=== PATIENT | male | born 1990 | race Two or more races ===

== ENCOUNTER 2019-12-19 14:44 | Emergency (ER) | payer OTHER ==
[~2019-12-19] VITALS: Ht 180.3 cm; Wt 70.3 kg
[2019-12-19 14:45] VITALS: BP 137/77
--- NOTE | 2019-12-19 15:27 | NUR ---
covid swab sent to lab.
--- NOTE | 2019-12-19 15:27 | NUR ---
Patient discharged to home in stable condition. Written and verbal after care instructions given. Patient verbalizes understanding of instruction.
== END 2019-12-19 15:27 | disposition home or self-care (01) ==
LOC: ER 14:47
DX: Z03.818 Encounter for observation for suspected exposure to other biological agents ruled out (principal)
CPT/HCPCS: 99283; U0003

== ENCOUNTER 2020-01-30 10:21 | Emergency (ER) | payer OTHER ==
[~2020-01-30] VITALS: Ht 180.3 cm; Wt 71.2 kg
[2020-01-30 10:27] VITALS: BP 126/75
--- NOTE | 2020-01-30 11:16 | NUR ---
Patient discharged to home in stable condition. Written and verbal after care instructions given. Patient verbalizes understanding of instruction.
== END 2020-01-30 11:16 | disposition home or self-care (01) ==
LOC: ER 10:21
DX: Z03.818 Encounter for observation for suspected exposure to other biological agents ruled out (principal)
CPT/HCPCS: 99283; C9803; U0003

== ENCOUNTER 2020-02-11 17:31 | Emergency (ER) | payer OTHER ==
[~2020-02-11] VITALS: Ht 180.3 cm; Wt 70.3 kg
[2020-02-11 17:42] VITALS: BP 128/81
--- NOTE | 2020-02-11 18:39 | NUR ---
Patient discharged to home in stable condition. Written and verbal after care instructions given. Patient verbalizes understanding of instruction.
== END 2020-02-11 18:39 | disposition home or self-care (01) ==
LOC: ER 17:32
DX: Z11.59 Encounter for screening for other viral diseases (principal)
CPT/HCPCS: 99283; C9803; U0003

== ENCOUNTER 2020-03-04 13:37 | Emergency (ER) | payer OTHER ==
[~2020-03-04] VITALS: Ht 180.3 cm; Wt 72.6 kg
[2020-03-04 13:45] VITALS: BP 123/81
--- NOTE | 2020-03-05 18:57 | NUR ---
COVID RESULTS RECEIVED: NEGATIVE
== END 2020-03-04 15:16 | disposition home or self-care (01) ==
LOC: ER 13:39
DX: Z20.828 Contact with and (suspected) exposure to other viral communicable diseases (principal)
CPT/HCPCS: 99283; C9803; U0003

== ENCOUNTER 2020-03-18 09:20 | Emergency (ER) | payer OTHER ==
[~2020-03-18] VITALS: Ht 180.3 cm; Wt 74.8 kg
[2020-03-18 09:25] VITALS: BP 135/81
--- NOTE | 2020-03-18 09:50 | NUR ---
Patient discharged to home in stable condition. Written and verbal after care instructions given. Patient verbalizes understanding of instruction.
== END 2020-03-18 09:49 | disposition home or self-care (01) ==
LOC: ER 09:20
DX: Z20.828 Contact with and (suspected) exposure to other viral communicable diseases (principal)
CPT/HCPCS: 99283; C9803; U0003

== ENCOUNTER 2020-03-28 13:44 | Emergency (ER) | payer OTHER ==
[~2020-03-28] VITALS: Ht 180.3 cm; Wt 72.6 kg
[2020-03-28 13:47] VITALS: BP 130/86
== END 2020-03-28 14:43 | disposition home or self-care (01) ==
LOC: ER 13:45
DX: Z20.828 Contact with and (suspected) exposure to other viral communicable diseases (principal)
CPT/HCPCS: 99283; C9803; U0003

== ENCOUNTER 2020-04-13 03:56 | Emergency (ER) | payer OTHER ==
[~2020-04-13] VITALS: Ht 180.3 cm; Wt 72.6 kg
[2020-04-13 04:00] VITALS: BP 132/62
== END 2020-04-13 04:10 | disposition home or self-care (01) ==
LOC: ER 03:58
DX: Z20.828 Contact with and (suspected) exposure to other viral communicable diseases (principal)
CPT/HCPCS: 99283; C9803; U0003

== ENCOUNTER 2020-04-22 17:34 | Emergency (ER) | payer OTHER ==
[~2020-04-22] VITALS: Ht 180.3 cm; Wt 73.0 kg
[2020-04-22 17:43] VITALS: BP 126/68
--- NOTE | 2020-04-22 18:44 | NUR ---
COVID SWAB SENT. Patient discharged to home in stable condition. Written and verbal after care instructions given. Patient verbalizes understanding of instruction.
== END 2020-04-22 18:45 | disposition home or self-care (01) ==
LOC: ER 17:34
DX: Z20.828 Contact with and (suspected) exposure to other viral communicable diseases (principal)
CPT/HCPCS: 99283; C9803; U0003

== ENCOUNTER 2020-05-05 10:51 | Emergency (ER) | payer OTHER ==
[~2020-05-05] VITALS: Ht 180.3 cm; Wt 72.6 kg
[2020-05-05 10:55] VITALS: BP 135/81
== END 2020-05-05 11:13 | disposition home or self-care (01) ==
LOC: ER 10:56
DX: Z20.828 Contact with and (suspected) exposure to other viral communicable diseases (principal)
CPT/HCPCS: 99283; C9803; U0003

== ENCOUNTER 2020-05-16 10:05 | Emergency (ER) | payer OTHER ==
[~2020-05-16] VITALS: Ht 180.3 cm; Wt 72.6 kg
[2020-05-16 10:10] VITALS: BP 122/78
== END 2020-05-16 10:29 | disposition home or self-care (01) ==
LOC: ER 10:07
DX: Z20.828 Contact with and (suspected) exposure to other viral communicable diseases (principal)
CPT/HCPCS: 99283; C9803; U0003

== ENCOUNTER 2020-05-23 10:24 | Emergency (ER) | payer OTHER ==
[~2020-05-23] VITALS: Ht 170.2 cm; Wt 72.6 kg
[2020-05-23 10:34] VITALS: BP 126/65
== END 2020-05-23 10:49 | disposition home or self-care (01) ==
LOC: ER 10:25
DX: Z20.828 Contact with and (suspected) exposure to other viral communicable diseases (principal)
CPT/HCPCS: 99283; C9803; U0003

== ENCOUNTER 2020-05-26 17:17 | Emergency (ER) | payer OTHER ==
[~2020-05-26] VITALS: Ht 180.3 cm; Wt 72.6 kg
[2020-05-26 17:20] VITALS: BP 132/80
--- NOTE | 2020-05-26 18:01 | NUR ---
Patient discharged to home in stable condition. Written and verbal after care instructions given. Patient verbalizes understanding of instruction.
== END 2020-05-26 18:02 | disposition home or self-care (01) ==
LOC: ER 17:24
DX: Z20.828 Contact with and (suspected) exposure to other viral communicable diseases (principal)
CPT/HCPCS: 99283; C9803; U0003

== ENCOUNTER 2020-06-07 03:43 | Emergency (ER) | payer OTHER ==
[~2020-06-07] VITALS: Ht 180.3 cm; Wt 72.6 kg
[2020-06-07 03:44] VITALS: BP 123/75
== END 2020-06-07 05:04 | disposition home or self-care (01) ==
LOC: ER 03:44
DX: Z20.828 Contact with and (suspected) exposure to other viral communicable diseases (principal)
CPT/HCPCS: 99283; C9803; U0003

== ENCOUNTER 2020-06-13 17:14 | Emergency (ER) | payer OTHER ==
[~2020-06-13] VITALS: Ht 180.3 cm; Wt 72.6 kg
[2020-06-13 17:16] VITALS: BP 121/84
== END 2020-06-13 17:43 | disposition home or self-care (01) ==
LOC: ER 17:15
DX: Z20.828 Contact with and (suspected) exposure to other viral communicable diseases (principal)
CPT/HCPCS: 99283; C9803; U0003

== ENCOUNTER 2020-06-26 17:41 | Emergency (ER) | payer OTHER ==
[~2020-06-26] VITALS: Ht 180.3 cm; Wt 72.6 kg
[2020-06-26 18:00] VITALS: BP 125/80
--- NOTE | 2020-06-26 18:11 | NUR ---
Patient discharged to home in stable condition. Written and verbal after care instructions given. Patient verbalizes understanding of instruction. Pt ambulatory with a steady gait
--- NOTE | 2020-06-26 18:11 | NUR ---
Patient discharged to home in stable condition. Written and verbal after care instructions given. Patient verbalizes understanding of instruction.IV removed. Catheter intact and site benign. Pressure and 4x4 applied to site. No bleeding noted. Pt ambulatory with a steady gait
--- NOTE | 2020-06-26 18:11 | NUR ---
COVID SWAB DONE AND SENT TO LAB
--- NOTE | 2020-06-28 02:32 | NUR ---
called pt for covid results. no one answered. vm left.
== END 2020-06-26 18:15 | disposition home or self-care (01) ==
LOC: ER 17:41
DX: Z20.828 Contact with and (suspected) exposure to other viral communicable diseases (principal)
CPT/HCPCS: 99283; C9803; U0003

== ENCOUNTER 2020-07-06 10:13 | Emergency (ER) | payer OTHER ==
[~2020-07-06] VITALS: Ht 180.3 cm; Wt 72.6 kg
--- NOTE | 2020-07-06 10:22 | NUR ---
COVID SWAB TEST COLLECTED AND SENT TO THE LAB.
[2020-07-06 10:30] VITALS: BP 116/81
--- NOTE | 2020-07-06 10:30 | NUR ---
Patient discharged to home in stable condition. Written and verbal after care instructions given. Patient verbalizes understanding of instruction.
== END 2020-07-06 11:07 | disposition home or self-care (01) ==
LOC: ER 10:14
DX: Z20.828 Contact with and (suspected) exposure to other viral communicable diseases (principal)
CPT/HCPCS: 99283; C9803; U0003

== ENCOUNTER 2020-07-17 11:15 | Emergency (ER) | payer OTHER ==
[~2020-07-17] VITALS: Ht 180.3 cm; Wt 72.6 kg
[2020-07-17 11:38] VITALS: BP 129/81
== END 2020-07-17 12:15 | disposition home or self-care (01) ==
LOC: ER 11:17
DX: Z20.828 Contact with and (suspected) exposure to other viral communicable diseases (principal)
CPT/HCPCS: 99283; C9803; U0003

== ENCOUNTER 2020-07-20 22:13 | Emergency (ER) | payer OTHER ==
[~2020-07-20] VITALS: Ht 180.3 cm; Wt 72.6 kg
[2020-07-20 22:15] VITALS: BP 132/64
[2020-07-24] MEDS ORDERED: NOREPINEPHRINE 4 MG/4 ML AMPUL IV ONE (03:29)
== END 2020-07-20 23:16 | disposition home or self-care (01) ==
LOC: ER 22:19
DX: Z20.828 Contact with and (suspected) exposure to other viral communicable diseases (principal)
CPT/HCPCS: 99283; C9803; U0003

== ENCOUNTER 2020-07-31 16:35 | Emergency (ER) | payer OTHER ==
[~2020-07-31] VITALS: Ht 180.3 cm; Wt 72.6 kg
[2020-07-31 16:42] VITALS: BP 125/68
== END 2020-07-31 17:06 | disposition home or self-care (01) ==
LOC: ER 16:36
DX: Z20.822 Contact with and (suspected) exposure to COVID-19 (principal)
CPT/HCPCS: 99283; C9803; U0003

== ENCOUNTER 2020-08-01 17:50 | Emergency (ER) | payer OTHER ==
[~2020-08-01] VITALS: Ht 180.3 cm; Wt 72.6 kg
[2020-08-01 17:50] VITALS: BP 126/84
== END 2020-08-01 18:09 | disposition home or self-care (01) ==
LOC: ER 17:51
DX: Z20.822 Contact with and (suspected) exposure to COVID-19 (principal)
CPT/HCPCS: 99283; C9803; U0003

== ENCOUNTER 2020-08-07 17:14 | Emergency (ER) | payer OTHER ==
[~2020-08-07] VITALS: Ht 180.3 cm; Wt 44.5 kg
[2020-08-07 17:14] VITALS: BP 119/77
== END 2020-08-07 18:10 | disposition home or self-care (01) ==
LOC: ER 17:15
DX: Z20.822 Contact with and (suspected) exposure to COVID-19 (principal)
CPT/HCPCS: 99283; C9803; U0003

== ENCOUNTER 2020-08-12 01:00 | Emergency (ER) | payer OTHER ==
[~2020-08-12] VITALS: Ht 170.2 cm; Wt 78.0 kg
[2020-08-12 01:01] VITALS: BP 127/73
== END 2020-08-12 01:26 | disposition home or self-care (01) ==
LOC: ER 01:04
DX: Z20.822 Contact with and (suspected) exposure to COVID-19 (principal)
CPT/HCPCS: 99283; C9803; U0003

== ENCOUNTER 2020-08-21 17:27 | Emergency (ER) | payer OTHER ==
[~2020-08-21] VITALS: Ht 170.2 cm; Wt 78.0 kg
[2020-08-21 18:16] VITALS: BP 143/83
--- NOTE | 2020-08-21 18:21 | NUR ---
COVID TEST DONE & SENT TO LAB
== END 2020-08-21 18:22 | disposition home or self-care (01) ==
LOC: ER 17:30
DX: Z20.822 Contact with and (suspected) exposure to COVID-19 (principal)
CPT/HCPCS: 99283; C9803; U0003

== ENCOUNTER 2020-08-29 16:01 | Emergency (ER) | payer OTHER ==
[~2020-08-29] VITALS: Ht 180.3 cm; Wt 72.6 kg
[2020-08-29 16:09] VITALS: BP 121/77
--- NOTE | 2020-08-29 16:33 | NUR ---
COVID SPECIMEN OBTAINED AND SENT TO LAB.
--- NOTE | 2020-08-29 16:33 | NUR ---
Patient discharged to home in stable condition. Written and verbal after care instructions given. Patient verbalizes understanding of instruction.
== END 2020-08-29 16:34 | disposition home or self-care (01) ==
LOC: ER 16:03
DX: Z20.822 Contact with and (suspected) exposure to COVID-19 (principal)
CPT/HCPCS: 99283; C9803; U0003

== ENCOUNTER 2020-08-30 16:18 | Emergency (ER) | payer OTHER ==
[~2020-08-30] VITALS: Ht 180.3 cm; Wt 72.6 kg
[2020-08-30 16:20] VITALS: BP 119/62
--- NOTE | 2020-08-30 16:46 | NUR ---
Patient discharged to home in stable condition. Written and verbal after care instructions given. Patient verbalizes understanding of instruction.
== END 2020-08-30 16:46 | disposition home or self-care (01) ==
LOC: ER 16:21
DX: Z20.822 Contact with and (suspected) exposure to COVID-19 (principal)
CPT/HCPCS: 99283; C9803; U0003

== ENCOUNTER → 2020-09-05 | Emergency (ER) | payer OTHER ==
[~2020-09-05] VITALS: Ht 177.8 cm; Wt 72.6 kg
[2020-09-05 15:51] VITALS: BP 117/78
--- NOTE | 2020-09-05 16:31 | NUR ---
Patient discharged to home in stable condition. Written and verbal after care instructions given. Patient verbalizes understanding of instruction. Pt ambulatory with a steady gait
== END | disposition home or self-care (01) ==
LOC: ER 17:56
DX: Z20.822 Contact with and (suspected) exposure to COVID-19 (principal)
CPT/HCPCS: 99283; C9803; U0003

== ENCOUNTER 2020-10-11 20:30 | Emergency (ER) | payer OTHER ==
[~2020-10-11] VITALS: Ht 177.8 cm; Wt 72.6 kg
[2020-10-11 20:30] VITALS: BP 125/89
== END 2020-10-11 20:51 | disposition home or self-care (01) ==
LOC: ER 20:32
DX: Z20.822 Contact with and (suspected) exposure to COVID-19 (principal)
CPT/HCPCS: 99283; C9803; U0003

== ENCOUNTER 2020-12-26 14:19 | Emergency (ER) | payer OTHER ==
[~2020-12-26] VITALS: Ht 154.9 cm; Wt 72.6 kg
[2020-12-26 14:21] VITALS: BP 122/84
--- NOTE | 2020-12-26 15:57 | NUR ---
Patient discharged to home in stable condition. Written and verbal after care instructions given. Patient verbalizes understanding of instruction.
== END 2020-12-26 15:57 | disposition home or self-care (01) ==
LOC: ER 14:22
DX: Z20.822 Contact with and (suspected) exposure to COVID-19 (principal)
CPT/HCPCS: 99283; C9803; U0003

== ENCOUNTER 2021-01-20 14:34 | Emergency (ER) | payer OTHER ==
[~2021-01-20] VITALS: Ht 180.3 cm; Wt 72.6 kg
[2021-01-20 14:39] VITALS: BP 132/84
--- NOTE | 2021-01-20 15:10 | NUR ---
covid swab collected and sent to lab.
--- NOTE | 2021-01-20 15:11 | NUR ---
Patient discharged to home in stable condition. Written and verbal after care instructions given. Patient verbalizes understanding of instruction.
== END 2021-01-20 15:11 | disposition home or self-care (01) ==
LOC: ER 14:35
DX: Z20.822 Contact with and (suspected) exposure to COVID-19 (principal)
CPT/HCPCS: 99283; C9803; U0003

== ENCOUNTER 2021-01-27 17:25 | Emergency (ER) | payer OTHER ==
[~2021-01-27] VITALS: Ht 177.8 cm; Wt 72.6 kg
[2021-01-27 17:30] VITALS: BP 128/77
--- NOTE | 2021-01-27 17:50 | NUR ---
Patient discharged to home in stable condition. Written and verbal after care instructions given. Patient verbalizes understanding of instruction. covid swab collected and sent to lab.
== END 2021-01-27 17:50 | disposition home or self-care (01) ==
LOC: ER 17:25
DX: Z20.822 Contact with and (suspected) exposure to COVID-19 (principal)
CPT/HCPCS: 99283; C9803; U0003

== ENCOUNTER 2021-02-02 15:29 | Emergency (ER) | payer OTHER ==
[~2021-02-02] VITALS: Ht 180.3 cm; Wt 72.6 kg
[2021-02-02 15:30] VITALS: BP 122/78
--- NOTE | 2021-02-02 16:24 | NUR ---
Patient discharged to home in stable condition. Written and verbal after care instructions given. Patient verbalizes understanding of instruction. Pt ambulatory with a steady gait
== END 2021-02-02 16:24 | disposition home or self-care (01) ==
LOC: ER 15:29
DX: Z20.822 Contact with and (suspected) exposure to COVID-19 (principal)
CPT/HCPCS: 99283; C9803; U0003

== ENCOUNTER 2021-02-09 14:46 | Emergency (ER) | payer OTHER ==
[~2021-02-09] VITALS: Ht 180.3 cm; Wt 72.6 kg
[2021-02-09 14:47] VITALS: BP 123/77
--- NOTE | 2021-02-09 15:19 | NUR ---
Patient discharged to home in stable condition. Written and verbal after care instructions given. Patient verbalizes understanding of instruction.
== END 2021-02-09 15:20 | disposition home or self-care (01) ==
LOC: ER 14:47
DX: Z20.822 Contact with and (suspected) exposure to COVID-19 (principal)
CPT/HCPCS: 99283; C9803; U0003

== ENCOUNTER 2021-02-17 15:58 | Emergency (ER) | payer OTHER ==
[~2021-02-17] VITALS: Ht 180.3 cm; Wt 72.6 kg
[2021-02-17 16:18] VITALS: BP 123/79
--- NOTE | 2021-02-17 17:09 | NUR ---
Patient discharged to home in stable condition. Written and verbal after care instructions given. Patient verbalizes understanding of instruction.
== END 2021-02-17 17:10 | disposition home or self-care (01) ==
LOC: ER 16:08
DX: Z20.822 Contact with and (suspected) exposure to COVID-19 (principal)
CPT/HCPCS: 99283; C9803; U0003

== ENCOUNTER 2021-02-22 14:29 | Emergency (ER) | payer OTHER ==
[~2021-02-22] VITALS: Ht 180.3 cm; Wt 72.6 kg
[2021-02-22 14:33] VITALS: BP 123/79
--- NOTE | 2021-02-22 15:01 | NUR ---
Patient discharged to home in stable condition. Written and verbal after care instructions given. Patient verbalizes understanding of instruction.
== END 2021-02-22 15:01 | disposition home or self-care (01) ==
LOC: ER 14:31
DX: Z20.822 Contact with and (suspected) exposure to COVID-19 (principal)
CPT/HCPCS: 99283; C9803; U0003

== ENCOUNTER 2021-02-24 16:54 | Emergency (ER) | payer OTHER ==
[~2021-02-24] VITALS: Ht 180.3 cm; Wt 72.6 kg
[2021-02-24 17:00] VITALS: BP 122/81
--- NOTE | 2021-02-24 17:14 | NUR ---
covid swab done and sent to lab
== END 2021-02-24 17:23 | disposition home or self-care (01) ==
LOC: ER 16:54
DX: Z20.822 Contact with and (suspected) exposure to COVID-19 (principal)
CPT/HCPCS: 99283; C9803; U0003

== ENCOUNTER 2021-02-25 13:48 | Emergency (ER) | payer OTHER ==
[~2021-02-25] VITALS: Ht 180.3 cm; Wt 72.6 kg
[2021-02-25 13:52] VITALS: BP 123/79
--- NOTE | 2021-02-25 13:56 | NUR ---
THE PATIENT BIBS FOR ROUTINE COVID TEST, DENIES ANY SYMPTOMS.
--- NOTE | 2021-02-25 14:40 | NUR ---
COVID SWAB SENT
== END 2021-02-25 14:41 | disposition home or self-care (01) ==
LOC: ER 13:51
DX: Z20.822 Contact with and (suspected) exposure to COVID-19 (principal)
CPT/HCPCS: 99283; C9803; U0003

== ENCOUNTER 2021-03-05 15:32 | Emergency (ER) | payer BC, OTHER ==
[~2021-03-05] VITALS: Ht 180.3 cm; Wt 72.6 kg
[2021-03-05 15:36] VITALS: BP 122/79
--- NOTE | 2021-03-05 16:04 | NUR ---
Patient discharged to home in stable condition. Written and verbal after care instructions given. Patient verbalizes understanding of instruction.
== END 2021-03-05 16:04 | disposition home or self-care (01) ==
LOC: ER 15:36
DX: Z20.822 Contact with and (suspected) exposure to COVID-19 (principal)
CPT/HCPCS: 99283; C9803; U0003

== ENCOUNTER → 2022-09-20 | Outpatient (CLI) | payer SELFPAY ==
[2022-09-20 10:06] LABS: BASOPHILS % (AUTO) 0.5 % (0.0-2.0); EOSINOPHILS % (AUTO) 1.1 % (0.0-6.0); HEMATOCRIT 49 % (39-51); HEMOGLOBIN 16.3 g/dL (13.5-17.5); LYMPHOCYTES # (AUTO) 2.5 K/uL (0.8-4.8); MEAN CORPUSCULAR HGB CONC 33 g/dl (31.0-36.0); MEAN CORPUSCULAR VOLUME 93 fL (80-96); MONOCYTES # (AUTO) 0.7 K/uL (0.1-1.30); NEUTROPHILS % (AUTO) 55.4 % (43.0-81.0); PLATELET COUNT (AUTO) 237 K/uL (150-450); RED BLOOD CELL COUNT(AUTO) 5.22 MIL/uL (4.5-6.0); WHITE BLOOD COUNT (AUTO) 7.2 K/uL (4.3-11.0)
[2022-09-20 10:21] LABS: ALBUMIN 4.2 g/dL (3.4-5.0); BILIRUBIN,TOTAL 0.4 mg/dL (0.2-1.0); CALCIUM, SERUM 9.5 mg/dL (8.5-10.1); CREATININE 0.9 mg/dL (0.6-1.3); TOTAL PROTEIN, SERUM 8.6 g/dL (6.4-8.2)
== END | disposition home or self-care (01) ==
LOC: LAB 09:09
PROVIDERS: ATTEND Nurse Practitioner Acute Care
DX: Z00.00 Encounter for general adult medical examination without abnormal findings (principal)
CPT/HCPCS: 36415; 80053-TC; 80061-TC; 84403; 85025-TC